=== PATIENT | female | born 1945 | race Caucasian/White ===

== ENCOUNTER 2017-08-29 09:44 | Outpatient (CLI) | payer BC | END 2017-08-29 09:45 | disposition home or self-care (01) | LOC: BICMAMMO 09:44 | PROVIDERS: ATTEND Family Medicine | DX: Z12.31 Encounter for screening mammogram for malignant neoplasm of breast (principal); Z13.820 Encounter for screening for osteoporosis; M85.88 Other specified disorders of bone density and structure, other site; Z80.3 Family history of malignant neoplasm of breast; Z78.0 Asymptomatic menopausal state | CPT/HCPCS: 77063; 77080 ==

== ENCOUNTER 2018-09-02 10:22 | Outpatient (CLI) | payer BC | END 2018-09-02 10:23 | disposition home or self-care (01) | LOC: BICMAMMO 10:22 | PROVIDERS: ATTEND Family Medicine | DX: Z12.31 Encounter for screening mammogram for malignant neoplasm of breast (principal); R92.1 Mammographic calcification found on diagnostic imaging of breast; Z80.3 Family history of malignant neoplasm of breast | CPT/HCPCS: 77063; 77067 ==

== ENCOUNTER 2019-11-17 10:23 | Outpatient (CLI) | payer BC, MEDICARE ==
--- NOTE | 2019-11-17 11:34 | BD ---
DEXA BONE DENSITY STUDY: Date: 11/17/2019 HISTORY: 74-year-old postmenopausal female for screening. FINDINGS: Lumbar Spine: BMD (g/cm2) L1 0.914 T-Score: -0.7 L2 0.817 T-Score: -1.9 L3 1.039 T-Score: -0.4 L4 1.086 T-Score: 0.2 L1-L4 0.971 T-Score: -0.7 Left Femoral Neck: 0.668 T-Score: -1.6 Total Femur: 0.816 T-Score: -1.0 IMPRESSION: Osteopenia. This patient has a 10 year WHO fracture risk for a major osteoporotic fracture of 18% and for a hip fracture of 7.8%. POS: TPC
--- NOTE | 2019-11-17 11:41 | MMO ---
Bilateral MAMMO Bilat Screen [facility]. CLINICAL HISTORY: Patient is 74 years old and is seen for screening. The patient has the following family history of breast cancer: mother. The patient has no personal history of cancer. VIEWS: The views performed were: bilateral craniocaudal with tomosynthesis and bilateral mediolateral oblique with tomosynthesis. FILMS COMPARED: The present examination has been compared to prior imaging studies performed at [facility] on 07/07/2014, 01/10/2016, 08/29/2017 and 09/02/2018. This study has been interpreted with the assistance of computer-aided detection. MAMMOGRAM FINDINGS: There are scattered fibroglandular densities. There are stable benign appearing calcifications seen in both breasts. There are no suspicious masses, suspicious calcifications, or new areas of architectural distortion. IMPRESSION: THERE IS NO MAMMOGRAPHIC EVIDENCE OF MALIGNANCY. A ROUTINE FOLLOW-UP MAMMOGRAM IN 1 YEAR IS RECOMMENDED. THE RESULTS OF THIS EXAM WERE SENT TO THE PATIENT. ACR BI-RADS Category 2 - Benign finding MAMMOGRAPHY NOTE: 1. A negative mammogram report should not delay a biopsy if a dominant of clinically suspicious mass is present. 2. Approximately 10% to 15% of breast cancers are not detected by mammography. 3. Adenosis and dense breasts may obscure an underlying neoplasm. Reported by: MARCELO AZAR MD Electonically Signed: [id number]
== END 2019-11-17 10:24 | disposition home or self-care (01) ==
LOC: BICMAMMO 10:23
PROVIDERS: ATTEND Internal Medicine
DX: Z12.31 Encounter for screening mammogram for malignant neoplasm of breast (principal); Z13.820 Encounter for screening for osteoporosis; M85.89 Other specified disorders of bone density and structure, multiple sites; Z78.0 Asymptomatic menopausal state; Z80.3 Family history of malignant neoplasm of breast
CPT/HCPCS: 77063; 77067; 77080

== ENCOUNTER 2020-05-31 11:05 | Outpatient (CLI) | payer BC, MEDICARE ==
--- NOTE | 2020-05-31 11:53 | CT ---
CT pulmonary lung scan without IV contrast INDICATION: Lung cancer screening protocol; 74-year-old female for lung cancer screening and 51 total pack year smoking; 5 years since the patient quit smoking. COMPARISON: None FINDINGS: LUNGS: Nodules\mass: There is a 6 mm noncalcified, subpleural pulmonary nodule within the posterior medial l eft lower lobe on image 131 of series 3. There is a small sub-4 mm pulmonary nodule within the right lower lobe on image 96 of series 3. Emphysema: There is mild centrilobular emphysema Additional findings: There are coronary artery and thoracic aortic calcifications. No pathologically enlarged lymph nodes are evident. Mediastinum: No lymphadenopathy. Upper abdomen: There is a small hiatal hernia. Osseous structures: No acute abnormality.. IMPRESSION: Lung-RADS Category 3: Probably Benign-[address] of the Thorax follow up recommended. Category S: Coronary artery and thoracic aortic calcifications. Small hiatal hernia. Mild centrilobul ar emphysema. Category C: Not applicable.
== END 2020-05-31 11:06 | disposition home or self-care (01) ==
LOC: BICCT 11:05
PROVIDERS: ATTEND Internal Medicine
DX: Z12.2 Encounter for screening for malignant neoplasm of respiratory organs (principal); I70.0 Atherosclerosis of aorta; I25.10 Atherosclerotic heart disease of native coronary artery without angina pectoris; K44.9 Diaphragmatic hernia without obstruction or gangrene; J43.2 Centrilobular emphysema; Z87.891 Personal history of nicotine dependence
CPT/HCPCS: G0297

== ENCOUNTER 2020-06-19 13:58 | Outpatient (CLI) | payer BC, MEDICARE ==
--- NOTE | 2020-06-19 17:15 | ULT ---
CAROTID DOPPLER ULTRASOUND: Technique: Ultrasound carotid Doppler study performed on the extracranial carotid arteries with color doppler, spectral analysis and velocity recordings. Indications: Dizziness FINDINGS: Ultrasound images show no significant intimal thickening or echogenic plaque seen in either extracran ial carotid system. Velocity recordings are within normal range. No evidence of stenosis. The vertebral arteries are antegrade. IMPRESSION: 1. No significant echogenic plaque identified by ultrasound. 2. No evidence of hemodynamically significant stenosis identified by velocity recording. POS: OFF
== END 2020-06-19 13:59 | disposition home or self-care (01) ==
LOC: SCSULT 13:58
PROVIDERS: ATTEND Internal Medicine
DX: R42 Dizziness and giddiness (principal)
CPT/HCPCS: 93880

== ENCOUNTER 2020-12-29 11:28 | Outpatient (CLI) | payer BC, MEDICARE | END 2020-12-29 11:29 | disposition home or self-care (01) | LOC: BICRAD 11:28 | PROVIDERS: ATTEND Internal Medicine | DX: M50.30 Other cervical disc degeneration, unspecified cervical region (principal); M47.812 Spondylosis without myelopathy or radiculopathy, cervical region | CPT/HCPCS: 72040 ==

== ENCOUNTER 2021-01-11 10:29 | Outpatient (CLI) | payer BC, MEDICARE | END 2021-01-11 10:30 | disposition home or self-care (01) | LOC: BICRAD 10:29 | PROVIDERS: ATTEND Physician Assistant | DX: S99.922A Unspecified injury of left foot, initial encounter (principal); S92.515A Nondisplaced fracture of proximal phalanx of left lesser toe(s), initial encounter for closed fracture ==

== ENCOUNTER 2021-01-26 10:02 | Outpatient (CLI) | payer BC, MEDICARE | END 2021-01-26 10:03 | disposition home or self-care (01) | LOC: BICMAMMO 10:02 | PROVIDERS: ATTEND Internal Medicine | DX: Z12.31 Encounter for screening mammogram for malignant neoplasm of breast (principal); Z80.3 Family history of malignant neoplasm of breast | CPT/HCPCS: 77063; 77067 ==

== ENCOUNTER 2022-04-03 09:38 | Outpatient (CLI) | payer BC, MEDICARE | END 2022-04-03 09:39 | disposition home or self-care (01) | LOC: BICULT 09:38 | PROVIDERS: ATTEND Internal Medicine | DX: Z12.31 Encounter for screening mammogram for malignant neoplasm of breast (principal); M85.88 Other specified disorders of bone density and structure, other site; E04.1 Nontoxic single thyroid nodule; R92.1 Mammographic calcification found on diagnostic imaging of breast; Z80.3 Family history of malignant neoplasm of breast | CPT/HCPCS: 76536; 77063; 77067; 77080 ==

== ENCOUNTER 2022-05-29 11:24 | Outpatient (CLI) | payer BC, MEDICARE | END 2022-05-29 11:25 | disposition home or self-care (01) | LOC: BICRAD 11:24 | PROVIDERS: ATTEND Internal Medicine | DX: M54.6 Pain in thoracic spine (principal); M47.814 Spondylosis without myelopathy or radiculopathy, thoracic region | CPT/HCPCS: 72072 ==

== ENCOUNTER 2023-04-16 09:27 | Outpatient (CLI) | payer BC, MEDICARE | END 2023-04-16 09:28 | disposition home or self-care (01) | LOC: BICULT 09:27 | PROVIDERS: ATTEND Internal Medicine | DX: Z12.2 Encounter for screening for malignant neoplasm of respiratory organs (principal); E04.1 Nontoxic single thyroid nodule; Z87.891 Personal history of nicotine dependence | CPT/HCPCS: 71271; 76536 ==

== ENCOUNTER 2023-05-20 11:01 | Outpatient (CLI) | payer BC, MEDICARE | END 2023-05-20 11:02 | disposition home or self-care (01) | LOC: BICMAMMO 11:01 | PROVIDERS: ATTEND Internal Medicine | DX: Z12.31 Encounter for screening mammogram for malignant neoplasm of breast (principal); Z80.3 Family history of malignant neoplasm of breast | CPT/HCPCS: 77063; 77067 ==

== ENCOUNTER 2024-08-17 13:34 | Outpatient (CLI) | payer BC, MEDICARE | END 2024-08-17 13:35 | disposition home or self-care (01) | LOC: BICRAD 13:34 | PROVIDERS: ATTEND Internal Medicine | DX: R07.81 Pleurodynia (principal) ==

== ENCOUNTER 2024-09-29 09:10 | Outpatient (CLI) | payer BC, MEDICARE | END 2024-09-29 09:11 | disposition home or self-care (01) | LOC: BICMAMMO 09:10 | PROVIDERS: ATTEND Internal Medicine | DX: Z12.31 Encounter for screening mammogram for malignant neoplasm of breast (principal); Z80.3 Family history of malignant neoplasm of breast | CPT/HCPCS: 77063; 77067 ==